=== PATIENT | female | born 1995 | race Caucasian/White ===

== ENCOUNTER 2023-05-25 02:46 | Inpatient (IN) ==
[2023-05-25] MEDS ORDERED: LIDOCAINE 1% LOCAL 20 ML VIAL INFIL PRN (03:37)
[2023-05-25] MEDS ORDERED: OXYTOCIN 30 UNITS/500 ML BAG IV PRN ×3 (03:37→21:35)
[2023-05-25 04:05] LABS: Hematocrit (blood only) 37.9 % (37.0-47.0); Hemoglobin 12.6 g/dl (12.0-16.0); Mean Corpuscular Hemoglobin 27.6 pg (25.0-34.0); Mean Corpuscular Hgb Conc 33.2 g/dL (32.0-36.0); Mean Corpuscular Volume 82.9 fL (80.0-100.0); Mean Platelet Volume 11.3 fL (9.4-12.4); Platelet Count 199 K/uL (130-400); RDW Coefficient of Variation 13.9 % (11.5-14.5); RDW Standard Deviation 41.7 fL (36.4-46.3); Red Blood Count 4.57 M/uL (4.20-5.40)
[2023-05-25] MEDS: LACTATED RINGER'S 1,000 ML IV PRN ×3 (07:04→15:57)
[2023-05-25] MEDS ORDERED: ePHEDrine sulfate 50 MG/ML AMP ONE (07:07)
[2023-05-25] MEDS ORDERED: fentaNYL citrate PF 100 MCG/2 ML VIAL ONE (07:07)
[2023-05-25] MEDS ORDERED: fentaNYL 2MCG/ML ROPIVACAINE 1.25MG/ML 100 ML BAG EPI ONE (07:08)
[2023-05-25] MEDS ORDERED: LIDOCAINE 2%/EPINEPHRINE 1:200,000 20 ML PF ONE (07:08)
[2023-05-25] MEDS ORDERED: SODIUM CHLORIDE 0.9% PF INJ 10 ML VIAL ONE (07:08)
[2023-05-25] MEDS ORDERED: BUPIVACAINE 0.25% PF 30 ML VIAL ONE (07:08)
[2023-05-25] MEDS ORDERED: NALOXONE HCL 1 MG in SODIUM CHLORIDE 0.9% 1000ML 1,000 ML IV PRN (07:10)
[2023-05-25] MEDS ORDERED: BUPIVACAINE 0.25% PF 30 ML VIAL EPI PRN (07:10)
[2023-05-25] MEDS ORDERED: diphenhydrAMINE 50 MG/ML VIAL IV PRN (07:10)
[2023-05-25] MEDS ORDERED: NALOXONE HCL 0.4 MG/1 ML VIAL/CARP IV PRN (07:10)
[2023-05-25] MEDS ORDERED: fentaNYL citrate PF 100 MCG/2 ML VIAL EPI PRN (07:10)
[2023-05-25] MEDS ORDERED: fentaNYL 2MCG/ML ROPIVACAINE 1.25MG/ML 100 ML BAG EPI PRN (07:10)
[2023-05-25] MEDS ORDERED: LIDOCAINE 2% MPF LOCAL 5 ML VIAL EPI PRN (07:10)
[2023-05-25] MEDS ORDERED: LIDOCAINE 2%/EPINEPHRINE 1:200,000 20 ML PF EPI STA (07:10)
[2023-05-25] MEDS ORDERED: NALBUPHINE HCL INJ 10 MG/ML AMP IV PRN (07:10)
[2023-05-25] MEDS ORDERED: fentaNYL citrate PF 100 MCG/2 ML VIAL EPI STA (07:10)
[2023-05-25] MEDS ORDERED: SODIUM CHLORIDE 0.9% PF INJ 10 ML VIAL EPI PRN (07:10)
[2023-05-25] MEDS ORDERED: ROPIVACAINE 0.5% PF 5 MG/ML 20 ML VIAL EPI PRN (07:10)
[2023-05-25] MEDS ORDERED: SODIUM CHLORIDE 0.9% PF INJ 10 ML VIAL EPI STA (07:10)
[2023-05-25] MEDS ORDERED: ePHEDrine sulfate 50 MG/ML AMP IV PRN (07:10)
[2023-05-25] MEDS ORDERED: BUPIVACAINE 0.25% PF 30 ML VIAL EPI STA (07:10)
--- NOTE | 2023-05-25 07:13 | Anesthesiology Consultation ---
Date of Service May 25, 2023 Assessment & Plan (1) Encounter for pre-operative examination: Chart Review Chart Review: Acceptable Risk for Surgery and Patient NOT seen in Pre Admission Testing Consults Requested none History Height/Weight Height: 5 ft 6 in Weight: 82.1 kg Allergies Allergy/AdvReac Type Severity Reaction Status Date / Time No Known Allergies Allergy Verified 05/24/23 14:55 Medications Home Medications Medication Instructions Recorded Confirmed Last Taken prenat.vits,zonia,rgh-jkvw-esxpr 1 tab PO DAILY 03/30/23 05/25/23 05/24/23 21:00 Active Medications Generic Name Dose Route Start Last Admin Trade Name Freq PRN Reason Stop Dose Admin Lactated Ringer's 1,000 mls @ 125 mls/hr 05/25/23 03:37 05/25/23 07:04 Lr IV 05/27/23 03:36 999 mls/hr .Q8H PRN Administration L&D Protocol Protocol Past Medical History Medical History No known health problems Exercise / Class Metabolic Activity II 4-5 Yardwork/Stairs/Walk up hill Past Family History Family History Mother Cancer Past Surgical History Surgical History No history of previous surgery Past Anesthesia History No Hx of Anesthesia Complications and No Family Hx of Anesthesia Complications Social History Smoking Status: Never smoker Do You Dip or Chew Tobacco: No Hx Alcohol Use: No Hx Substance Use: No Physical Exam Vital Signs Last Vital Signs Temp 36.8 C 05/25/23 06:57 Pulse 92 H 05/25/23 07:35 Resp 20 05/25/23 06:57 BP 104/66 05/25/23 07:35 Pulse Ox 95 05/25/23 07:33 Testing Laboratory Results 05/25/23 03:48
--- NOTE | 2023-05-25 07:43 | History & Physical Report ---
Date of Service May 25, 2023 Assessment & Plan (1) Supervision of normal intrauterine in primigravida: Plan: Primipara term advised to spontaneous rupture of membranes contractions are starting on their own patient admitted Admission and Anticipated Discharge Date Admission Date: May 25, 2023 History of Present Illness Primary Care Provider: Wei Baptiste DO rrent Estimate 06/02/23 Ultrasound #1 38w 5d Other Estimates 06/13/23C LMP (Uncertain) 37w 1d LMP: 09/06/22 : 1 Full term: 0 Premature: 0 Total Number of Induced Abortions: 0 Total Number of Spontaneous Abortions: 0 Ectopics: 0 Multiple births: 0 Number of Living Children: 0 and Delivery Plans Failed 28wk 1hr, did not take 2hr GTT. Manage as GDM *Begin monthly Growth US's @24wks Allergies Allergy/AdvReac Type Severity Reaction Status Date / Time No Known Allergies Allergy Verified 05/24/23 14:55 Home Medications Medication Instructions Recorded Confirmed Type prenat.vits,zonia,pqh-vqtg-blddz 1 tab PO DAILY 03/30/23 05/25/23 History Patient History Medical History No known health problems Surgical History No history of previous surgery Family History Mother Cancer Social History (Updated 11/22/22 @ 17:09 by Ioana Kay) Smoking Status: Never smoker Do You Dip or Chew Tobacco: No; Hx Alcohol Use: No Hx Substance Use: No Preferred Language: [employer] [facility] Representative Required: No Beliefs That Will Affect Care: None marital status: Single marital status details: marija (34) [phone] Current Living Situation: Spouse Current Living Situation Comment: lives with BETTINA, and his son, 3 dogs. 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 [employer] Other Information That Helps Us Care for You: No Feels Safe at Home: Yes Safety Concerns: Feels Safe At This Time Review of Systems as per Subjective / HPI Physical Exam Constitutional: WD/WN, vitals as above well developed and well nourished Respiratory: normal respiratory effort, lungs clear to auscultation normal respiratory effort Cardiovascular: RRR, no murmur, no edema Gastrointestinal (Abdomen): normal bowel sounds, soft, nontender, no hep atosplenomegaly Results & Data Vital Signs (Past 12 Hours) Vital Signs Temp Pulse Resp BP Pulse Ox 05/25/23 03:46 18 05/25/23 07:41 85 109/67 05/25/23 07:39 91 H 107/62 05/25/23 07:38 91 H 20 115/61 93 05/25/23 07:35 92 H 104/66 05/25/23 07:33 88 95 05/25/23 07:28 101 H 96 05/25/23 07:23 104 H 92 05/25/23 06:57 98.2 F 82 20 122/73 05/25/23 05:07 97.7 F Coding Level of Care Code None Diagnoses Supervision of normal intrauterine in primigravida Z34.00
--- NOTE | 2023-05-25 13:18 | Labor Progress Brief Note ---
Date of Service May 25, 2023 Subjective Comfortable with ctx. FHT Cat 1 Rapelje Q 2-3 min SVE anterior lip/100/+1, bloody show Continue labor. Assessment & Plan Admission and Anticipated Discharge Date Admission Date: May 25, 2023 Results & Data Vital Signs (Past 12 Hours) Vital Signs Temp Pulse Resp BP Pulse Ox 05/25/23 03:46 18 05/25/23 13:13 94 H 99 05/25/23 13:08 76 98 05/25/23 12:30 18 05/25/23 12:30 18 05/25/23 13:04 82 112/57 L 05/25/23 13:03 92 H 97 05/25/23 12:58 77 98 05/25/23 12:53 85 98 05/25/23 12:50 86 106/63 05/25/23 12:48 92 H 97 05/25/23 12:43 76 94 05/25/23 12:38 75 94 05/25/23 12:33 78 95 05/25/23 12:34 75 100/56 L 05/25/23 12:28 77 94 05/25/23 12:23 77 96 05/25/23 12:18 96 05/25/23 12:18 81 05/25/23 12:00 20 05/25/23 12:00 36.7 C 20 05/25/23 12:18 82 100/57 L 05/25/23 12:13 90 96 05/25/23 12:08 75 95 05/25/23 12:03 77 98/55 L 95 05/25/23 11:58 78 94 05/25/23 11:53 78 93 05/25/23 11:49 77 98/59 L 05/25/23 11:48 78 95 05/25/23 11:43 75 95 05/25/23 11:38 75 93 05/25/23 11:34 77 98/53 L 05/25/23 11:33 78 95 05/25/23 11:30 20 05/25/23 11:30 20 05/25/23 11:28 74 95 05/25/23 11:23 86 97 05/25/23 11:22 73 100/55 L 05/25/23 11:20 99 H 89 L 05/25/23 11:18 68 95 05/25/23 11:13 71 94 07/06/23 11:08 75 95 05/25/23 11:00 20 05/25/23 11:00 20 05/25/23 11:03 77 107/65 95 05/25/23 10:58 86 97 05/25/23 10:53 74 95 05/25/23 10:49 80 108/66 05/25/23 10:48 84 97 05/25/23 10:43 80 95 05/25/23 10:38 75 94 05/25/23 10:33 78 110/66 94 05/25/23 10:30 20 05/25/23 10:30 20 05/25/23 10:28 93 H 98 05/25/23 10:23 90 97 05/25/23 10:18 87 112/69 96 05/25/23 10:13 79 97 05/25/23 10:00 20 05/25/23 10:00 36.7 C 20 05/25/23 10:08 96 H 96 05/25/23 10:03 83 93 05/25/23 10:04 76 107/62 05/25/23 09:58 79 93 05/25/23 09:53 79 93 05/25/23 09:49 75 101/59 L 05/25/23 09:48 77 94 05/25/23 09:43 79 93 05/25/23 09:38 77 94 05/25/23 09:33 93 05/25/23 09:33 84 05/25/23 09:33 82 107/62 05/25/23 09:30 20 05/25/23 09:30 20 05/25/23 09:28 76 91 05/25/23 09:23 79 92 05/25/23 09:00 18 05/25/23 09:00 18 05/25/23 09:18 79 93 05/25/23 09:19 78 106/60 05/25/23 08:30 20 05/25/23 08:30 20 05/25/23 09:13 83 94 05/25/23 09:08 89 94 05/25/23 09:03 94 05/25/23 09:03 94 H 05/25/23 09:03 90 101/61 05/25/23 08:58 85 93 05/25/23 08:53 95 H 92 05/25/23 08:49 100 H 105/62 05/25/23 08:48 94 H 94 05/25/23 08:43 89 95 05/25/23 08:38 94 H 94 05/25/23 08:33 89 101/62 96 05/25/23 08:28 97 H 96 05/25/23 08:23 95 H 95 05/25/23 08:18 89 94 05/25/23 08:15 90 106/53 L 05/25/23 08:13 95 H 96 05/25/23 08:10 97 H 106/56 L 05/25/23 08:08 86 93 05/25/23 08:06 80 05/25/23 08:06 105/59 L 05/25/23 08:06 80 105/59 L 05/25/23 08:03 83 107/61 93 05/25/23 08:01 86 87/50 L 05/25/23 08:00 20 05/25/23 08:00 36.7 C 20 05/25/23 07:58 88 93 05/25/23 07:55 87 18 118/69 05/25/23 07:53 94 05/25/23 07:53 96 H 05/25/23 07:53 84 106/65 05/25/23 07:50 18 05/25/23 07:50 18 05/25/23 07:51 97 H 112/68 05/25/23 07:48 94 H 92 05/25/23 07:49 85 110/64 05/25/23 07:47 90 104/60 05/25/23 07:45 82 20 106/62 05/25/23 07:43 92 05/25/23 07:43 99 H 05/25/23 07:43 88 106/64 05/25/23 07:41 85 109/67 05/25/23 07:39 91 H 107/62 05/25/23 07:38 91 H 20 115/61 93 05/25/23 07:35 92 H 104/66 05/25/23 07:33 88 95 05/25/23 07:28 101 H 96 05/25/23 07:23 104 H 92 05/25/23 06:57 36.8 C 82 20 122/73 05/25/23 05:07 36.5 C Coding Level of Care Code None Diagnoses
--- NOTE | 2023-05-25 19:51 | Delivery Summary ---
Vaginal Delivery Summary Date of Service May 25, 2023 Vaginal Delivery Summary and 2nd Degree LAC Vaginal Delivery Summary: Pre-delivery diagnoses: 28yo @ 38 6/7, labor, incomplete testing for gestational diabetes Post-delivery diagnoses: same Procedure: spontaneous vaginal delivery Surgeon: Andreea Castro DO Complications: none Findings: Viable . Apgars: 8/9 . Weight pending, please see nursery records Estimated blood loss: 300ml Description of delivery: The patient progressed to complete with epidural anesthesia. She then began to push. She spontaneously vaginally delivered a viable from the cephalic presentation. The head delivered in ASTRID position. Nuchal around neck and body - delivered through. The anterior shoulder delivered, followed by the posterior shoulder, followed by the body. The baby was placed on mother's abdomen and a spontaneous cry was heard. Delayed cord clamping was employed, and the cord was doubly clamped and cut. Cord blood was obtained. The placenta was delivered spontaneously intact with a 3-vessel cord. The uterus and vagina were swept of clots and debris. IV pitocin was given. The uterus became firm. The cervix, vagina, and perineum were inspected and a second degree and left labial laceration were noted. These were repaired with 3-0 Vicryl in standard fashion. Excellent hemostasis was observed. The mother and baby are recovering in stable and good condition in the room. Sponge, needle and instrument counts were correct x 2. Andreea Castro DO [facility] Vaginal Delivery Charge Vaginal Delivery Codes: 68848 global code for the antepartum, delivery, and post- Delivery Type Details: and 2nd Degree LAC
--- NOTE | 2023-05-25 21:23 | Anesthesia Procedure Note ---
Date of Service May 25, 2023 Anesthesia Post Epidural Note Vital Signs Vital Signs: Temp Pulse Resp BP Pulse Ox 37.3 C 112 H 20 101/58 L 97 05/25/23 18:00 05/25/23 21:15 05/25/23 18:00 05/25/23 21:15 05/25/23 19:25 Pain Intensity Bilateral Abdomen: Pain Intensity: 0 Notes Mental Status: alert / awake / arousable and participated in evaluation Nausea / Vomiting: adequately controlled Pain: adequately controlled Airway Patency, RR, SpO2: stable & adequate BP & HR: stable & adequate Hydration State: stable & adequate Neuraxial Anesthesia: was administered and sensory block is resolving Anesthetic Complications: no major complications apparent and Pt Satisfied with anesthetic care Epidural: Removed without complications and With tip intact
[2023-05-25] MEDS ORDERED: BENZOCAINE 20% AER SPR 82.5 GM CAN EXT PRN (21:35)
[2023-05-25] MEDS ORDERED: oxyCODONE/ACETAMINOPHEN 5mg/325mg TAB PO PRN (21:35)
[2023-05-25] MEDS ORDERED: ACETAMINOPHEN 325 MG TAB PO PRN (21:35)
[2023-05-25] MEDS ORDERED: DIPHTHERIA/TETANUS/PERTUSSIS Vaccine (Tdap, Age 7+yrs) 0.5mL SYR/VL IM ONE (21:35)
[2023-05-25] MEDS ORDERED: bisacodyL 10 MG SUPP PR PRN (21:35)
[2023-05-25] MEDS ORDERED: HYDROCORTISONE ACETATE 25 MG SUPP PR PRN (21:35)
[2023-05-25] MEDS: IBUPROFEN 600 MG TAB PO PRN (21:48)
[2023-05-25] MEDS: DOCUSATE SODIUM 100 MG CAP PO SCH (21:48)
[2023-05-26 06:53] LABS: Hematocrit (blood only) 35.6 % (37.0-47.0); Hemoglobin 11.8 g/dl (12.0-16.0)
[2023-05-26] MEDS: IBUPROFEN 600 MG TAB PO PRN ×3 (07:42→19:48)
--- NOTE | 2023-05-26 08:46 | Obstetrical Progress Note ---
Date of Service May 26, 2023 Assessment & Plan (1) Supervision of normal intrauterine in primigravida: PPD#1 doing well, anticipate DC home tomorrow. Continue routine care. Subjective Ambulation: ambulating normally Voiding: no voiding problems Diet Tolerance:: regular diet Lochia:: Moderate Review of Systems All systems reviewed & are unremarkable except as noted in HPI & below Physical Exam Constitutional WD/WN, vitals as above no acute distress Respiratory normal respiratory effort Cardiovascular Rate/Rhythm: regular rate and regular rhythm Gastrointestinal (Abdomen) Inspection/Auscultation: abdomen normal to inspection; abdomen not distended Percussion/Palpation: abdomen soft Genitourinary OB Exam Abdomen: + fundal height Fundus: + firm; not tender Results & Data Vital Signs (Past 12 Hours) Vital Signs Temp Pulse Pulse Resp BP BP Pulse Ox 05/26/23 04:05 36.6 C 82 17 102/69 98 05/26/23 03:32 36.6 C 86 18 105/65 97 05/25/23 22:01 36.7 C 89 18 100/66 95 05/25/23 21:30 109 H 97/58 L 05/25/23 21:15 112 H 101/58 L 05/25/23 21:00 123 H 102/60 O2 Del Method 05/26/23 04:05 Room Air 05/26/23 03:32 Room Air 05/25/23 22:01 Room Air 05/25/23 21:30 05/25/23 21:15 05/25/23 21:00
[2023-05-26] MEDS: DOCUSATE SODIUM 100 MG CAP PO SCH ×2 (08:48→19:49)
[2023-05-26] MEDS: PRENATAL VITAMIN 1 TAB PO SCH (08:48)
[2023-05-26] MEDS ORDERED: bisacodyL 5 MG TABEC PO SCH (20:00)
[2023-05-27] MEDS: IBUPROFEN 600 MG TAB PO PRN ×2 (05:18→10:12)
--- NOTE | 2023-05-27 07:22 | Obstetrical Progress Note ---
Date of Service May 27, 2023 Assessment & Plan (1) examination following vaginal delivery: Plan stable, routine care. dc home, f/u 6wks pp check. instructions reviewed. anahi koch ri. Day #:: 2 Subjective Ambulation: ambulating normally Voiding: no voiding problems Diet Tolerance:: regular diet Lochia:: Small Feeding Type:: bottle feeding no pain issues. Physical Exam Constitutional WD/WN, vitals as above Respiratory normal respiratory effort, lungs clear to auscultation Cardiovascular Rate/Rhythm: regular rate and regular rhythm Gastrointestinal (Abdomen) Inspection/Auscultation: abdomen normal to inspection Percussion/Palpation: abdomen soft Fundus firm 2cm down Musculoskeletal nt calves no edema Neurologic grossly normal Psychiatric A+Ox3, euthymic affect Results & Data Vital Signs (Past 12 Hours) Vital Signs Temp Pulse Resp BP Pulse Ox O2 Del Method 05/27/23 05:00 98.2 F 92 H 18 105/72 96 Room Air 05/26/23 19:45 98.4 F 94 H 18 103/68 96 Room Air
[2023-05-27] MEDS: DOCUSATE SODIUM 100 MG CAP PO SCH (10:11)
[2023-05-27] MEDS: PRENATAL VITAMIN 1 TAB PO SCH (10:11)
== END 2023-05-27 18:06 | disposition home or self-care (01) | DRG 807 ==
LOC: OPB 02:46 → 4S1 02:47 → 4E2 22:25